=== PATIENT | female | born 1935 | race Hispanic/Latino ===

== ENCOUNTER 2017-06-29 15:32 | Emergency (ER) | payer OTHER ==
[~2017-06-29] VITALS: Ht 154.9 cm; Wt 49.9 kg
[~2017-06-29 15:32] MED LIST: ARICEPT5 MG PO; ASA81 MG PO; ASPIRIN CHEW81 MG PO; CETRIZINE PO; MELOXICAM7.5 MG PO; NAMENDA10 MG PO; VITAMIN B-121000 MC2 SC; Z.0.ALENDRONATE SOD7 PO; Z.0.AMBIEN5 MG PO; Z.0.EVISTA60 MG PO; Z.0.IMDUR60 MG PO; Z.0.MAGNESIUM400 MG PO; Z.0.NITROSTAT0.4 MG SL; Z.0.SIMVASTATIN40 MG PO; Z.0.TOPROL XL25 MG PO; Z.0.VITAMIN D50000 U PO; [UNRECOGNIZED DRUG - OTHER] PO
[2017-06-29 16:12] LABS: BASOPHILS % 0.4 % (0.0-1.0); EOSINOPHILS % 0.6 % (0.0-6.0); HEMATOCRIT 36.4 % (34.2-44.1); HEMOGLOBIN 12.2 g/dL (12.0-16.0); LYMPHOCYTES % 19.2 % (18.0-39.1); MEAN CORPUSCULAR HEMOGLOBIN 34.1 pg (28-32); MEAN CORPUSCULAR HGB CONC 33.5 g/dL (31-35); MEAN CORPUSCULAR VOLUME 101.7 fL (81-99); MONOCYTES # (AUTO) 0.3 (0.2-0.8); MONOCYTES % 6.6 % (4.4-11.3); NEUTROPHILS # (AUTO) 3.7 (2.1-6.9); NEUTROPHILS % 72.8 % (38.7-80.0); PLATELET COUNT 151 x10e3/uL (140-360); RED BLOOD COUNT 3.58 x10e6/uL (3.6-5.1); RED CELL DISTRIBUTION WIDTH 12.5 % (11.7-14.4)
[2017-06-29 16:16] LABS: INR 1.11; PROTHROMBIN TIME 13.5 seconds (11.9-14.5)
[2017-06-29 16:17] LABS: PARTIAL THROMBOPLASTIN TIME 25.8 seconds (23.8-35.5)
[2017-06-29 16:25] LABS: ALANINE AMINOTRANSFERASE 18 IU/L (0-55); ALBUMIN 3.9 g/dL (3.5-5.0); ALBUMIN/GLOBULIN RATIO 1.4 (0.8-2.0); ALKALINE PHOSPHATASE 76 IU/L (40-150); ANION GAP 9.4 mmol/L (8-16); BLOOD UREA NITROGEN 22 mg/dL (7-26); BUN/CREATININE RATIO 29 (6-25); CALCIUM 8.5 mg/dL (8.4-10.2); CARBON DIOXIDE 31 mmol/L (22-29); CHLORIDE 106 mmol/L (98-107); CREATINE KINASE 243 IU/L (29-168); CREATININE, SERUM 0.75 mg/dL (0.57-1.11); EST GLOMERULAR FILTRATION RATE > 60 ML/MIN (60-); GLUCOSE 164 mg/dL (74-118); POTASSIUM 3.4 mmol/L (3.5-5.1); SODIUM 143 mmol/L (136-145)
[2017-06-29] MEDS ORDERED: LEVETIRACETAM 500MG/5ML VIAL 1,000 MG in SODIUM CHLORIDE 0.9% 100 ML 100 ML IV STA (16:52)
--- NOTE | 2017-06-29 17:08 | Diagnostic Imaging Report ---
Exams: Head and cervical spine CTs without IV contrast History: Trauma, fall Comparison studies: Multiple prior head CTs and brain MRIs which date to 12/17/2013, most recent head CT of 08/19/2016 Technique: Axial images were obtained from the brain and cervical spine. Coronal and sagittal images reconstructed from the axial data. Intravenous contrast: None Findings: Head CT: Scalp: Midline occipital scalp hematoma with laceration. No retained hyperdense foreign body. Bones: No fractures, blastic or lytic lesions. Extra-axial spaces: No masses. No fluid collections. Brain sulci: Right temporal, right inferior parietal and right lateral occipital sulci are partially effaced. Remaining sulci are mildly prominent. Ventricles: The temporal horn and trigone of the right lateral ventricle are partially effaced. There is mild compensatory dilatation of the remaining ventricles. No hydrocephalus. Extra axial spaces: Acute right frontoparietotemporal subdural hematoma measures up to 0.3 cm in max thickness. Scattered right occipital, right frontal and right temporal subarachnoid hemorrhage. Parenchyma: No acute 2.7 x 6.7 3.1 cm (SI x AP x TV) parenchymal hematoma centered in the right temporal lobe which extends to the right inferior parietal lobule with surrounding vasogenic edema edema results in regional mass effect with effacement of regional sulci, partially effaces the right lateral ventricle but does not result in midline shift or herniation. Subtle hypodensity along the right orbitofrontal gyri likely reflects small contusions. Chronic cortical-subcortical insult centered along the posterior right superior frontal gyrus regional to the supplementary motor area in the right MADAY vascular territory. A few scattered hypodensities in the supratentorial white matter are nonspecific most compatible with chronic small vessel ischemic changes. Sellar/suprasellar region: No abnormalities. Craniocervical junction: The foramen magnum is patent. No Chiari one malformation. Cervical spine CT: Fractures: None. Soft tissues: No gross abnormalities. Atlantoaxial articulation: Intact. Alignment: Mild hyperlordotic curvature. Minimal anterolisthesis of C7 on T1 is most likely degenerative in etiology. Cervicomedullary junction: No abnormalities. The foramen magnum is patent. Vertebrae: No infection or neoplasm. Degenerative changes: Moderate degenerative changes at the atlantodental interval. No significant canal stenosis. Mild foraminal stenosis on the right at C5-C6 due to uncovertebral and facet arthrosis. Multilevel facet arthrosis, worse/moderate on the left at C4-C5 and bilaterally at C5-C6. Incidental findings: Atherosclerotic calcifications in the carotid siphons and intradural vertebral arteries. Moderate pleural thickening at the bilateral lung apices with pleural base calcification, bronchiectasis and consolidation. Findings may be sequela of chronic infectious/inflammatory granulomatous disease. IMPRESSION: Head CT: 1. Large acute parenchymal hematoma centered in the right temporal lobe with surrounding subarachnoid hemorrhage and overlying 3 mm right frontoparietotemporal subdural hematoma with regional mass effect without midline shift or herniation. Primary consideration is posttraumatic hemorrhage. Given degree of hemorrhage, recommend correlation for underlying coagulopathy. 2. Small right orbitofrontal subarachnoid hemorrhage and contusions without mass effect. 3. Inferior occipital scalp hematoma and laceration without retained hyperdense foreign body or underlying fracture. 4. Chronic findings include: Mild generalized volume loss, mild chronic microvascular ischemic changes and chronic right superior frontal gyrus infarct. Cervical spine CT: 1. No cervical spine fracture or acute subluxation. 2. Cannot adequate evaluate ligament, spinal cord or vascular abnormalities on the basis of this examination. 3. Pleural thickening with bronchiectasis and consolidation at the lung apices. Recommendation: Intracranial CTA to to further evaluate. Chest CT to further evaluate the lungs lungs. Long-term follow-up imaging will be ultimately necessary to document expected evolution of hemorrhage and exclude the possibility of underlying lesion obscured by hemorrhage. Findings discussed with Dr. Messina at 4:37 PM on 06/29/2017. Signed by: Dr. Albert Shen M.D. on 06/29/2017 5:04 PM
[2017-06-29] MEDS ORDERED: MORPHINE SULFATE 2 MG/ML SYR IV STA (17:10)
[2017-06-29 17:22] VITALS: BP 136/64
== END 2017-06-29 17:24 | disposition short-term general hospital (02) ==
LOC: ER 15:32
DX: I60.9 Nontraumatic subarachnoid hemorrhage, unspecified (principal); S01.01XA Laceration without foreign body of scalp, initial encounter; W18.30XA Fall on same level, unspecified, initial encounter; Y92.002 Bathroom of unspecified non-institutional (private) residence as the place of occurrence of the external cause; F03.90 Unspecified dementia, unspecified severity, without behavioral disturbance, psychotic disturbance, mood disturbance, and anxiety; I25.2 Old myocardial infarction; Z95.1 Presence of aortocoronary bypass graft
CPT/HCPCS: 36415; 70450; 72125; 80053; 82550; 82553; 84484; 85025; 85610; 85730; 93005; 99284; J2270